=== PATIENT | male | born 1965 ===

== ENCOUNTER 2016-10-19 13:38 | Emergency (ER) | payer OTHER ==
[2016-10-19 14:10] VITALS: BP 138/83
--- NOTE | 2016-10-19 14:25 | UC ---
Ear Complaint HPI - HPI Summary HPI Summary: patient has a ringing in his ear, that has been there for 5 days, no other symptoms - History of Current Complaint Chief Complaint: UCEar Stated Complaint: RIGHT EAR COMPLAINT Time Seen by Provider: 10/19/16 14:11 Hx Obtained From: Patient Onset/Duration: Sudden Onset, Lasting Days Severity Initially: Mild Severity Currently: Mild Pain Intensity: 0 Pain Scale Used: 0-10 Numeric Alleviating Factors: Nothing - Allergies/Home Medications Allergies/Adverse Reactions: Allergies Allergy/AdvReac Type Severity Reaction Status Date / Time No Known Allergies Allergy Verified 10/19/16 14:10 Home Medications: Home Medications Glucosamine Hydrochloride [Glucosamine] 2,000 mg PO DAILY 10/19/16 [History Confirmed 10/19/16] PMH/Surg Hx/FS Hx/Imm Hx Previously Healthy: Yes - Surgical History Surgical History: None - Family History Known Family History: Negative: Cardiac Disease, Hypertension, Renal Disease - Social History Alcohol Use: None Substance Use Type: None Smoking Status (MU): Never Smoked Tobacco Review of Systems Constitutional: Negative Skin: Negative Eyes: Negative ENT: Other - ringing in right ear Respiratory: Negative Cardiovascular: Negative Gastrointestinal: Negative Genitourinary: Negative Motor: Negative Neurovascular: Negative Musculoskeletal: Negative Neurological: Negative Psychological: Negative All Other Systems Reviewed And Are Negative: Yes Physical Exam Triage Information Reviewed: Yes Appearance: Well-Appearing, Well-Nourished, Pain Distress Vital Signs: Initial Vital Signs Temp 99.2 F 10/19/16 14:03 Pulse 80 10/19/16 14:03 Resp 18 10/19/16 14:03 BP 138/83 10/19/16 14:03 Vital Signs Reviewed: Yes Eye Exam: Normal Eyes: Positive: Conjunctiva Clear ENT: Positive: Hearing grossly normal, Pharynx normal, TMs normal Dental Exam: Normal Neck exam: Normal Neck: Positive: Supple, Nontender, No Lymphadenopathy Respiratory Exam: Normal Respiratory: Positive: Chest non-tender, Lungs clear, Normal breath sounds Cardiovascular Exam: Normal Cardiovascular: Positive: RRR, No Murmur, Pulses Normal Abdominal Exam: Normal Abdomen Description: Positive: Nontender, No Organomegaly, Soft Bowel Sounds: Positive: Present Musculoskeletal Exam: Normal Musculoskeletal: Positive: Strength Intact, ROM Intact, No Edema Neurological Exam: Normal Neurological: Positive: Alert, Muscle Tone Normal, Fatigued Psychological Exam: Normal Skin Exam: Normal Ear Complaint Course/Dx - Course Course Of Treatment: hx obtained exam performed, he is not having any ear pain, just ringing in the ear. requesting prednisone for it because he was told it would help. agreed to give a few days of prednisone, otherwise benign exam. - Differential Dx/Diagnosis Provider Diagnoses: tinnitus, Discharge - Discharge Plan Condition: Stable Disposition: HOME Prescriptions: predniSONE TAB* [Deltasone TAB*] 40 mg PO DAILY #10 tab Patient Education Materials: Tinnitus (ED) Additional Instructions: take the medication as prescribed. Follow up with your primary physican if symptoms persist.
== END 2016-10-19 14:39 | disposition home or self-care (01) ==
LOC: UCCORT 13:38
DX: H93.11 Tinnitus, right ear (principal)
CPT/HCPCS: 99202; G0463